=== PATIENT | male | born 1995 ===

== ENCOUNTER 2017-03-06 17:43 | Emergency (ER) | payer BC, MEDICAID, OTHER ==
[2017-03-06 18:25] VITALS: BP 104/73
--- NOTE | 2017-03-06 20:29 | UC ---
Respiratory Complaint HPI - HPI Summary HPI Summary: Patient presents to with fevers, chills, sweats, cough, sore throat, head cold, and sinus congestion x 2 days. Hx of sinus infection. Denies history of PNA. Has felt fatigued, but is working long hours with little sleep. Endorses allergies, but is not taking medication. Denies sick contacts. - History of Current Complaint Chief Complaint: UCRespiratory Stated Complaint: FEVER 101-102 BODYACHES SORE THROAT Time Seen by Provider: 03/06/17 18:26 Hx Obtained From: Patient Onset/Duration: Sudden Onset Timing: Constant Severity Initially: Moderate Severity Currently: Moderate Pain Intensity: 7 Pain Scale Used: 0-10 Numeric Character: Cough: Nonproductive Aggravating Factors: Allergens Associated Signs And Symptoms: Positive: Fever, URI, Nasal Congestion, Sinus Discomfort - Risk Factors Pulmonary Embolism Risk Factors: Negative Cardiac Risk Factors: Negative Pseudomonas Risk Factors: Negative Tuberculosis Risk Factors: Negative - Allergies/Home Medications Allergies/Adverse Reactions: Allergies Allergy/AdvReac Type Severity Reaction Status Date / Time Cefaclor [From Ceclor] Allergy Severe Anaphylatic Verified 03/06/17 18:17 Shock Fluoxetine [From Prozac] Allergy Severe Anaphylatic Verified 03/06/17 18:17 Shock Home Medications: Home Medications Acetaminophen [Eq Acetaminophen] 750 mg PO Q4H PRN 03/06/17 [History Confirmed 03/06/17] Ibuprofen TAB* [Advil TAB*] 800 mg PO Q6H PRN 03/06/17 [History Confirmed ] PMH/Surg Hx/FS Hx/Imm Hx Previously Healthy: Yes - Surgical History Surgical History: None - Family History Known Family History: Positive: Unknown - Social History Occupation: Employed Full-time Lives: With Family Alcohol Use: Occasionally Substance Use Type: None Smoking Status (MU): Never Smoked Tobacco - Immunization History Vaccination Up to Date: Yes Review of Systems Constitutional: Fever, Chills, Fatigue Skin: Negative Eyes: Negative ENT: Sore Throat, Ear Ache, Nasal Discharge Respiratory: Cough Cardiovascular: Negative Genitourinary: Negative Motor: Negative Musculoskeletal: Negative Neurological: Negative Psychological: Negative All Other Systems Reviewed And Are Negative: Yes Physical Exam Triage Information Reviewed: Yes Appearance: Well-Appearing, No Pain Distress, Well-Nourished Vital Signs: Initial Vital Signs Temp 99.1 F 03/06/17 18:19 Pulse 91 03/06/17 18:19 Resp 20 03/06/17 18:19 BP 104/73 03/06/17 18:19 Pulse Ox 99 03/06/17 18:19 Vital Signs Reviewed: Yes Eye Exam: Normal Eyes: Positive: Conjunctiva Clear ENT: Positive: Pharynx normal, Nasal congestion, TMs normal Dental Exam: Normal Neck exam: Normal Neck: Positive: Nontender, No Lymphadenopathy Respiratory Exam: Normal Respiratory: Positive: Chest non-tender, Lungs clear Cardiovascular Exam: Normal Cardiovascular: Positive: RRR Musculoskeletal: Positive: Strength Intact Neurological Exam: Normal Neurological: Positive: Alert Psychological: Positive: Normal Response To Family, Age Appropriate Behavior Skin Exam: Normal Diagnostic Evaluation - Laboratory O2 Sat by Pulse Oximetry: 99 Respiratory Course/Dx - Course Course Of Treatment: Presents with fever, congestion, body aches, malaise, and cough. Encouraged tylenol for fevers. Mucinex, flonase, zofran and claritin given for symptoms. Patient will return if symptoms worsen. Explained to patient treatment options and viral illnesses. - Differential Dx/Diagnosis Differential Diagnosis/HQI/PQRI: Laryngitis, Lower Resp Infection, Sinusitis Provider Diagnoses: Viral Illness Discharge - Discharge Plan Condition: Stable Disposition: HOME Prescriptions: Fluticasone NASAL SPRAY 50MCG* [Flonase NASAL SPRAY 50MCG*] 2 spray BOTH NARES DAILY #1 btl Loratadine [Claritin 10 MG CAP] 10 mg PO DAILY #15 cap Ondansetron ODT TAB* [Zofran 4 MG Odt TAB*] 4 mg PO Q6H PRN #12 tab.odt MDD 4 PRN Reason: Nausea guaiFENesin ER TAB [Mucinex*] 600 mg PO BID #16 tab.er Patient Education Materials: Upper Respiratory Infection (ED) Referrals: Jaden Ibarra MD [Primary Care Provider] - Additional Instructions: Humidifier in the home will help. Tylenol for discomfort. Take all medications as directed. Symptoms should resolve in 1-3 weeks. If symptoms become worse, please come back to or go to the ED. Flonase 2 puffs daily in the AM Claritin 10mg daily in the morning Zofran as needed for nausea - dissolves under tongue Mucinex twice daily (morning and night) Drink plenty of fluids and get plenty of rest >10 hours.
== END 2017-03-06 19:06 | disposition home or self-care (01) ==
LOC: UCCORT 17:43
DX: B34.9 Viral infection, unspecified (principal); Z88.1 Allergy status to other antibiotic agents; Z88.8 Allergy status to other drugs, medicaments and biological substances
CPT/HCPCS: 87651; 99212; G0463

== ENCOUNTER 2018-06-27 20:47 | Emergency (ER) | payer BC ==
[2018-06-27 21:14] VITALS: BP 117/62
[2018-06-27] MEDS ORDERED: Sulfamethox/Trimethoprim DS 800/160* TAB PO ONE (21:47)
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
== END 2018-06-27 21:54 | disposition home or self-care (01) ==
LOC: UCCORT 20:47
DX: T81.4XXA Infection following a procedure, initial encounter (principal); Z88.1 Allergy status to other antibiotic agents; Z88.8 Allergy status to other drugs, medicaments and biological substances; F17.220 Nicotine dependence, chewing tobacco, uncomplicated
CPT/HCPCS: 99212; A9270-GY; G0463

== ENCOUNTER 2018-09-12 12:40 | Emergency (ER) | payer BC ==
[2018-09-12 13:00] VITALS: BP 127/74
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
== END 2018-09-12 14:14 | disposition home or self-care (01) ==
LOC: UCCORT 12:40
DX: S62.347A Nondisplaced fracture of base of fifth metacarpal bone, left hand, initial encounter for closed fracture (principal); Z88.8 Allergy status to other drugs, medicaments and biological substances; Z88.1 Allergy status to other antibiotic agents; W01.0XXA Fall on same level from slipping, tripping and stumbling without subsequent striking against object, initial encounter; Y92.59 Other trade areas as the place of occurrence of the external cause; Z98.890 Other specified postprocedural states
CPT/HCPCS: 99213; G0463

== ENCOUNTER 2018-12-22 18:56 | Emergency (ER) | payer BC ==
--- OUTSIDE RECORDS SUMMARY | 2018-12-22 19:06 | XMS REPORT | Continuity of Care Document ---
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 Payers Date Identification Numbers Payment Provider Subscriber Effective: 2016 Policy Number: [id number] BCBS Ppo Giuliano Guadalupe PayID: [id number] [place] [address] Policy Number: [id number] BCBS Ppo Louisa E Anayeli PayID: [id number] [address] [address] [place] [address] Expires: 2016 Policy Number: [id number] BCBS Ppo Louisa E Anayeli PayID: [id number] [place] [address] Policy Number: [id number] Medicaid ### >12 Giuliano Guadalupe PayID: [id number] [address] [place] [address] Policy Number: [id number] [employer] [address] Louisa [address] Anayeli [address] [place] [address] Advance Directives Description No Information Available Problems Date Description Provider Status Onset: 12/19/2018 Tobacco user Jaden Ibarra MD Active Onset: 07/10/2011 No current problems or disability Inactive Inactive: 12/19/2018 Family History Description No Information Available Social History Type Date Description Comments Sex Unknown Marital Status Single Occupation [employer] Smokeless Tobacco Quit - Age 20 previously used 1 can/day Allergies, Adverse Reactions, Alerts Date Description Reaction Status Severity Comments 02/15/2009 Prozac rash & swelling Active 05/16/2006 Ceclor Active Rash 05/16/2006 Zyrtec Active Rash 07/15/2015 Clindamycin Active hives Medications Medication Date Status Form Strength Qnty SIG Indications Ordering Provider Doxycycline Active Tablets 100mg 20tabs 1 by mouth Digiovanna Hyclate 019 twice a , Jaden, day x 10 MD days (w/ food but not milk) Ibuprofen Active Tablets 200mg prn for Digiovanna 000 fever/cardona , Jaden J Doxycycline Hx Tablets 100mg 6tabs 1 by mouth W57.xxxA Digiovanna Hyclate 017 - twice a , Jaden, day x 3 MD 017 days (w/ food but not milk) Amoxicillin/Cl Hx Tablets 875-125mg 20tabs 1 by mouth J01.90 Digiovanna avulanate 016 - every 12 , Potassium hours for Ghada, 016 10 days - 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 PCN allergy Doxycycline Hx Capsules 100mg 2caps take 2 W57.xxxA Digiovanna Hyclate 016 - capsules , Jaden, by mouth 016 once Immunizations CPT Code Status Date Vaccine Reaction Lot # [id number] Given 11/07/2018 Gardasil-9 (HPV) Nonavalent Im inj completed, Pt [id number] 2-3 Dose Schedule Im tolerated well 26639 Given 10/07/2018 Gardasil-9 (HPV) Nonavalent [id number] 2-3 [place] [address] Given 09/28/2018 Tdap (Adacel) Ages 7 And Above Only 84189 Given 07/10/2011 Menactra/Menveo (MOTHER SAYS THAT [place] Meningococcal Vaccine INSURANCE DOES PAY FOR VACCINES [facility] SERUM USED) 25403 Given 07/10/2011 Afluria Or Fluvirin Flu Vac (MOTHER SAYS THAT [place] Intramuscular INSURANCE DOES PAY FOR VACCINES [facility] SERUM USED) 35544 Given 09/10/2009 Afluria Or Fluvirin Flu Vac Intramuscular 71508 Given 08/20/2008 Afluria Or Fluvirin Flu Vac Intramuscular 88317 Given 07/19/2007 Varicella (Chicken Pox) [facility] SERUM Immunization 17308 Given 07/19/2007 Varicella (Chicken Pox) Immunization 42591 Given 04/19/2007 Tdap (Adacel) Ages 7 And Above Only 82708 Given 10/25/1999 MMR Virus Immunization OLD RECORDS 45412 Given 10/25/1999 DTaP Immunization 7 Yrs & OLD RECORDS Younger 82214 Given 02/15/1998 DTP & Hib Immunization OLD RECORDS 15741 Given 12/08/1996 MMR Virus Immunization OLD RECORDS 05923 Given 07/04/1996 Hepatitis B Vac OLD RECORDS Ped/Adolescent 3 Dose Schedule 19193 Given 07/04/1996 DTP & Hib Immunization OLD RECORDS 55539 Given 07/04/1996 Oral Poliovirus OLD RECORDS Immunization 32625 Given 02/26/1996 DTP & Hib Immunization OLD RECORDS 64639 Given 02/26/1996 Oral Poliovirus OLD RECORDS Immunization 62436 Given 1995 Hepatitis B Vac OLD RECORDS Ped/Adolescent 3 Dose Schedule 07440 Given 1995 DTP & Hib Immunization OLD RECORDS 61719 Given 1995 Oral Poliovirus OLD RECORDS Immunization 32796 Given 1995 Hepatitis B Vac OLD RECORDS Ped/Adolescent 3 Dose Schedule 09752 Refused 10/07/2018 Afluria Or Fluvirin Flu Vac Intramuscular Vital Signs Date Vital Result Comment 12/19/2018 10:32am Body Temperature 97.1 F Weight 135.00 lb Heart Rate 92 /min BP Systolic 118 mmHg BP Diastolic 80 mmHg Respiratory Rate 18 /min Height 71 inches 5'11" O2 % BldC Oximetry 98 % Ra BMI (Body Mass Index) 18.8 kg/m2 10/07/2018 2:16pm Weight 134.00 lb Heart Rate 84 /min BP Systolic 112 mmHg BP Diastolic 68 mmHg Respiratory Rate 16 /min 07/16/2017 11:05am Weight 137.00 lb Heart Rate 74 /min BP Systolic 118 mmHg BP Diastolic 68 mmHg Respiratory Rate 18 /min Height 70.5 inches 5'10.50" BMI (Body Mass Index) 19.4 kg/m2 09/20/2016 3:56pm Body Temperature 98.1 F Weight 136.00 lb Heart Rate 84 /min BP Systolic 112 mmHg BP Diastolic 68 mmHg Respiratory Rate 18 /min Height 70.5 inches 5'10.50" O2 % BldC Oximetry 98 % Ra BMI (Body Mass Index) 19.2 kg/m2 Body Mass Index Percentile 99 % 02/25/2016 9:42am Weight 130.00 lb Heart Rate 74 /min BP Systolic 120 mmHg BP Diastolic 80 mmHg Respiratory Rate 18 /min Height 70.5 inches 5'10.50" BMI (Body Mass Index) 18.4 kg/m2 07/15/2015 11:21am Body Temperature 97.9 F Weight 131.00 lb Heart Rate 74 /min BP Systolic 100 mmHg BP Diastolic 60 mmHg Respiratory Rate 18 /min Height 70.5 inches 5'10.50" O2 % BldC Oximetry 98 % BMI (Body Mass Index) 18.5 kg/m2 01/21/2013 3:58pm Body Temperature 99.0 F Weight 129.00 lb Heart Rate 76 /min BP Systolic 102 mmHg BP Diastolic 70 mmHg Respiratory Rate 18 /min Height 70 inches 5'10" 11/06/2012 9:38am Body Temperature 97.8 F Weight 131.31 lb Up 2# Heart Rate 72 /min BP Systolic 132 mmHg L/Reg BP Diastolic 72 mmHg L/Reg Respiratory Rate 19 /min Height 69.75 inches 5'9.75" 12/27/2011 8:01am Body Temperature 97.3 F Weight 129.00 lb Heart Rate 64 /min BP Systolic 118 mmHg L/Reg BP Diastolic 78 mmHg L/Reg Respiratory Rate 18 /min Height 69.4 inches 5'9.40" 10/04/2011 4:01pm Body Temperature 98.4 F Weight 127.56 lb Heart Rate 60 /min BP Systolic 110 mmHg BP Diastolic 64 mmHg Respiratory Rate 17 /min Height 68.5 inches 5'8.50" 07/17/2011 1:46pm Weight 126.00 lb Up 4# Heart Rate 74 /min BP Systolic 128 mmHg L/Reg BP Diastolic 88 mmHg L/Reg Respiratory Rate 19 /min Height 68.5 inches 5'8.50" 07/10/2011 2:19pm Weight 122.25 lb Heart Rate 80 /min BP Systolic 118 mmHg L/Med BP Diastolic 92 mmHg L/Med Respiratory Rate 19 /min Height 68.5 inches 5'8.50" 06/22/2011 4:26pm Weight 124.00 lb Heart Rate 90 /min BP Systolic 102 mmHg BP Diastolic 68 mmHg Respiratory Rate 24 /min Height 68.5 inches 5'8.50" 08/02/2010 4:09pm Weight 116.00 lb BP Systolic 120 mmHg BP Diastolic 58 mmHg 05/27/2010 2:04pm Weight 117.19 lb Heart Rate 60 /min BP Systolic 98 mmHg l arm BP Diastolic 62 mmHg l arm Respiratory Rate 18 /min 02/15/2010 3:42pm Body Temperature 97.3 F 12:30 Today Tylenol/10:30 Motrin Weight 109.44 lb Heart Rate 79 /min BP Systolic 100 mmHg BP Diastolic 72 mmHg 02/15/2009 3:40pm Body Temperature 98.2 F Weight 95.31 lb Heart Rate 70 /min BP Systolic 112 mmHg BP Diastolic 70 mmHg Respiratory Rate 18 /min 01/27/2009 4:19pm Weight 97.06 lb Heart Rate 76 /min BP Systolic 110 mmHg LEFT BP Diastolic 62 mmHg LEFT Respiratory Rate 15 /min 11/05/2008 8:23am Weight 92.56 lb Heart Rate 72 /min BP Systolic 112 mmHg R/Reg BP Diastolic 72 mmHg R/Reg Respiratory Rate 15 /min Height 61.6 inches 5'1.60" 08/26/2008 11:20am Body Temperature 96.0 F Weight 90.00 lb Heart Rate 88 /min BP Systolic 102 mmHg BP Diastolic 68 mmHg Respiratory Rate 20 /min 01/20/2008 2:37pm Weight 86.00 lb Heart Rate 81 /min BP Systolic 94 mmHg BP Diastolic 70 mmHg Respiratory Rate 18 /min 12/09/2007 2:50pm Body Temperature 95.8 F Weight 86.00 lb Heart Rate 80 /min BP Systolic 100 mmHg BP Diastolic 70 mmHg 05/20/2007 4:24pm Body Temperature 101.0 F Had 300MG Advil 1HR Ago Weight 75.00 lb 8#Loss Heart Rate 104 /min BP Systolic 100 mmHg BP Diastolic 60 mmHg Respiratory Rate 20 /min 04/19/2007 3:11pm Body Temperature 97.8 F Weight 83.00 lb Heart Rate 85 /min BP Systolic 110 mmHg BP Diastolic 80 mmHg Respiratory Rate 17 /min 12/05/2006 11:22am Body Temperature 97.8 F Weight 77.12 lb Up 2# Heart Rate 70 /min BP Systolic 114 mmHg L/Peds BP Diastolic 76 mmHg L/Peds Respiratory Rate 12 /min 10/16/2006 2:30pm Weight 75.00 lb Heart Rate 92 /min BP Systolic 112 mmHg L/Med BP Diastolic 66 mmHg L/Med Height 56.3 inches 4'8.30" 07/06/2006 1:09pm Body Temperature 97.6 F Weight 74.38 lb Up 3# Heart Rate 98 /min BP Systolic 108 mmHg L/Med BP Diastolic 60 mmHg L/Med 06/15/2006 8:53am Body Temperature 98.4 F Weight 71.25 lb Up 2# Heart Rate 84 /min BP Systolic 102 mmHg R/Peds BP Diastolic 56 mmHg R/Peds Respiratory Rate 20 /min 06/14/2006 9:12am Weight 69.19 lb Heart Rate 94 /min BP Systolic 108 mmHg L/Med BP Diastolic 64 mmHg L/Med 06/08/2006 3:02pm Weight 71.50 lb Up 1# Heart Rate 92 /min BP Systolic 102 mmHg R/Med BP Diastolic 64 mmHg R/Med 05/24/2006 1:45pm Body Temperature 97.0 F Weight 70.00 lb 05/21/2006 4:19pm Weight 70.06 lb Up 3# Heart Rate 90 /min BP Systolic 92 mmHg L/Med BP Diastolic 68 mmHg L/Med 05/16/2006 2:38pm Weight 67.38 lb Heart Rate 70 /min BP Systolic 102 mmHg L/Med BP Diastolic 58 mmHg L/Med Respiratory Rate 20 /min Height 55.75 inches 4'7.75" Results Test Date Facility Test Result H/L Range Note Laboratory test N2N/CCD Import Cryptosporidium Negative For 1 finding 7 Specific Ag Cry <See Note> Giardia Specific Antigen Negative For Jo[place] <See Note> 2 [facility] [place] [facility] <see comment> 3 Parasitology Conc. Smear <see comment> 4 Parasitology Permanent Smear <see comment> 5 Stool Culture <see comment> 6 Laboratory test finding 05/23/2007 N2N/CCD Import Hematocrit 30.5 % Low 35.0-45.0 Hemoglobin 11.2 gm/dL Low 11.5-15.5 Mean Cell Volume 76.4 fL Low 77.0-95.0 Mean Corpuscular HGB 27.9 pg 25.0-33.0 Mean Corpuscular HGB Conc 36.6 g/dL High 31.7-36.0 Mean Platelet Volume 6.6 fl 6.6-10.6 Platelet Count 243 K/uL 150-400 Red Blood Count 4.00 M/uL 4.00-5.20 Red Cell Distri Width %CV 12.4 % 11.6-15.8 White Blood Count 6.2 K/uL 4.5-13.5 Differential-WBC 05/23/2007 N2N/CCD Import Anisocytosis 0-1+ Band% 26 % Lymph% 25 % 17-56 Microcytosis 1+ Monocyte% 17 % High 0-10 Myelocyte% 2 High -0 % Neutrophils% 30 % 28-68 Platelet Estimate Normal Total Cells Counted 100 #Cells Laboratory test finding 05/23/2007 N2N/CCD Import Anion Gap 14 mEq/L 8- 16 BUN 14 mg/dL 5-23 BUN/Creat 20.0 Calcium 8.8 mg/dL 8.5-10.1 Carbon Dioxide 25 mEq/L 21-32 Chloride 98 mEq/L 98-107 Creatinine 0.7 mg/dL 0.5-1.4 Glucose 127 mg/dL High 76-115 NT-proBNP 432.9 pg/mL High <125.0 7 Potassium 3.5 mEq/L 3.5-5.1 Sodium 133 mEq/L Low 136-145 Laboratory test finding 05/22/2007 N2N/CCD Import Anion Gap 14 mEq/L 8- 16 Anisocytosis 0-1+ Atypical Lymph% 2 % 0-7 BUN 29 mg/dL High 5-23 BUN/Creat 32.2 Band% 40 % Calcium 9.3 mg/dL 8.5-10.1 Carbon Dioxide 26 mEq/L 21-32 Chloride 91 mEq/L Low 98-107 Creatinine 0.9 mg/dL 0.5-1.4 Differential Comment Few LRG PLTS See <See Note> Glucose 147 mg/dL High 76-115 Hematocrit 42.7 % 35.0-45.0 Hemoglobin 14.9 gm/dL 11.5-15.5 Lymph% 18 % 17-56 Mean Cell Volume 81.2 fl 77.0-95.0 Mean Corpuscular HGB 28.4 pg 25.0-33.0 Mean Corpuscular HGB Conc 35.0 g/dL 32.0-35.5 Mean Platelet Volume 8.6 fl 6.0-9.9 Metamyelocyte% 2 % Microcytosis 2+ Monocyte% 20 % High 0-10 Myelocyte% 1 High -0 % Neutrophils% 17 % Low 28-68 Platelet Count 327 K/uL 145-400 Platelet Estimate Normal Potassium 4.1 mEq/L 3.5-5.1 Red Blood Count 5.26 M/uL High 4.00-5.20 Red Cell Distri Width %CV 12.6 % 12.3-15.8 Rouleaux 0-1+ Sodium 127 mEq/L Low 136-145 Total Cells Counted 100 #Cells White Blood Count 8.4 K/uL 4.5-13.5 8 Laboratory test 06/15/2006 N2N/CCD Import Culture Throat Normal Throat FL 9 finding <See Note> 1 NEGATIVE FOR CRYPTOSPORIDIUM SPECIFIC ANTIGEN 2 NEGATIVE FOR GIARDIA SPECIFIC ANTIGEN. 3 Organism Identification Salmonella Typhimurium was identified. TEST PERFORMED AT: [facility] [address] [place] [address] 4 NO OVA, CYSTS, OR PARASITES FOUND. Specimen was processed by formalin ethyl- acetate concentration and was reviewed with unstained and iodine-stained direct light exam. It does not include testing for Cryptosporidium parvum, Cyclospora, or Microsporidia. 5 NO CYSTS OR TROPHOZOITES OBSERVED. Specimen was processed by formalin ethyl- acetate concentration and a trichrome stained slide was reviewed. It does not include testing for Cryptosporidium parvum, Cyclospora, or Microsporidia. 6 Organism 1 ! SALMONELLA SPECIES QUANTITY ! FEW 7 Increased levels of BNP may also be seen in the following conditions: AMI ( first 2-5 days) Hypertension with LVH Acute Dyspnea Pulmonary Embolism Obstructive Pulmonary Disease Hyperthyroidism Liver Cirrhosis with Ascites Renal Failure (acute or chronic) 8 FEW LRG PLTS SEEN 9 NORMAL THROAT LISA Procedures Date Code Description Status 12/19/2018 23919 Measure Blood Oxygen Level Single Determination Completed 09/20/2016 30787 Measure Blood Oxygen Level Single Determination Completed 07/15/2015 93710 Measure Blood Oxygen Level Single Determination Completed 01/21/2013 07953 Visual Screening Test Completed 01/21/2013 04431 Screening Hearing Test Completed 07/10/2011 70252 Visual Screening Test Completed 07/10/2011 80336 Screening Hearing Test Completed Encounters Type Date Location Provider Dx Diagnosis Office Visit 10/07/2018 [facility] Fred, S00.83xA Contusion of other 2:15p MD Jaden part of head, initial encounter Z23 Encounter for immunization Office Visit 07/16/2017 11:15a [facility] Jaden Ibarra, W57.xxxA Bit/ stung by nonvenom insect & oth nonvenom arthropods, init L03.314 Cellulitis of groin Office Visit 09/20/2016 4:00p [facility] Ghada Ibarra J01.90 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, 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 Office Visit 02/25/2016 9:45a [facility] Jaden Ibarra, S00.86xA Insect bite MD (nonvenomous) of other part of head, init encntr W57.xxxA Bit/stung by nonvenom insect & oth nonvenom arthropods, init W57.xxxA Bit/stung by nonvenom insect & oth nonvenom arthropods, init Office Visit 07/15/2015 11:15a [facility] Amira Perera PA L50.0 Allergic urticaria Plan of Treatment 12/19/2018 - Jaden Ibarra MDJ01.90 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, unspecifiedFollow up :Follow up as dvrpusL84.220 Nicotine dependence, chewing tobacco, [id number] Body mass index (BMI) 19.9 or less, adult
[2018-12-22 19:14] VITALS: BP 118/65
[2018-12-22] MEDS ORDERED: Fluorescein Sodium TOPICAL* 1 MG TEST STRIP OPHTHALMIC ONE (19:26)
[2018-12-22] MEDS ORDERED: Polymyx/Trimethoprim OPTH* 10 ML BTL LEFT EYE ONE (19:36)
--- NOTE | 2018-12-22 19:38 | UC ---
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 He is allergic to hay eye feels gritty with f/b sensation under upper lid red/rearing and profuse purulent d/c - History of Current Complaint Chief Complaint: UCEye Stated Complaint: LEFT EYE CONCERN Time Seen by Provider: 12/22/18 19:21 Hx Obtained From: Patient Onset/Duration: Sudden Onset, Lasting Hours Timing: Constant Severity Initially: Mild Severity Currently: Moderate Pain Intensity: 2 Pain Scale Used: 0-10 Numeric Location of Injury: Conjunctiva, Eye Lid (upper) Character: Foreign Body Sensation Aggravating Factor(s): Nothing Alleviating Factor(s): Nothing Associated Signs And Symptoms: Positive: Drainage (Purulent) Related History: Foreign Body - Allergies/Home Medications Allergies/Adverse Reactions: Allergies Allergy/AdvReac Type Severity Reaction Status Date / Time cetirizine [From Zyrtec] Allergy Unknown Hives Verified 12/22/18 19:15 cefaclor [From Ceclor] Allergy Anaphylatic Verified 12/22/18 19:15 Shock fluoxetine [From Prozac] Allergy Anaphylatic Verified 12/22/18 19:15 Shock Home Medications: Home Medications Ibuprofen TAB* [Motrin TAB* 600 MG] 600 mg PO Q8H PRN 12/22/18 [History Confirmed 12/22/18] PMH/Surg Hx/FS Hx/Imm Hx Previously Healthy: Yes - Surgical History Surgical History: Yes Surgery Procedure, Year, and Place: left clavicle repair - Family History Known Family History: Positive: Unknown - Social History Alcohol Use: Weekly Substance Use Type: None Smoking Status (MU): Never Smoked Tobacco Type: Smokeless Tobacco Amount Used/How Often: one can a day Length of Time of Smoking/Using Tobacco: 6 yrs Have You Smoked in the Last Year: No - uses smokeless tobacco - Immunization History Vaccination Up to Date: Yes Review of Systems All Other Systems Reviewed And Are Negative: Yes Constitutional: Positive: Negative Skin: Positive: Negative Eyes: Positive: Drainage - L, Eye Redness - L ENT: Positive: Negative Respiratory: Positive: Negative Cardiovascular: Positive: Negative Gastrointestinal: Positive: Negative Genitourinary: Positive: Negative Motor: Positive: Negative Neurovascular: Positive: Negative Musculoskeletal: Positive: Negative Neurological: Positive: Negative Psychological: Positive: Negative Physical Exam Triage Information Reviewed: Yes Appearance: Well-Appearing, No Pain Distress, Well-Nourished Vital Signs: Initial Vital Signs Temp 98.7 F 12/22/18 19:09 Pulse 79 12/22/18 19:09 Resp 16 12/22/18 19:09 BP 118/65 12/22/18 19:09 Pulse Ox 99 12/22/18 19:09 Vital Signs Reviewed: Yes Eyes: Positive: Conjunctiva Inflamed - L, Discharge - L, Other: - no fb noted/ lid everted, (-) florescein staining ENT: Positive: Hearing grossly normal, Uvula midline. Negative: Nasal congestion, Nasal drainage, Trismus, Muffled voice, Hoarse voice Neck: Positive: Supple, Nontender, No Lymphadenopathy Respiratory: Positive: Lungs clear, Normal breath sounds, No respiratory distress, No accessory muscle use Cardiovascular: Positive: RRR, No Murmur Musculoskeletal: Positive: No Edema Neurological: Positive: Alert Psychological Exam: Normal Skin Exam: Normal Eye Complaint Course/Dx - Course Course Of Treatment: pt advised he may have a fb that I am not visualizing should see eye MD tomorrow unless his symptoms have resolved - Differential Dx/Diagnosis Provider Diagnosis: Conjunctivitis, left eye Discharge - Sign-Out/Discharge Documenting (check all that apply): Patient Departure All imaging exams completed and their final reports reviewed: No Studies - Discharge Plan Condition: Stable Disposition: HOME Patient Education Materials: Conjunctivitis (ED) Referrals: Indra Beck MD [Medical Doctor] - 1 Day Ashley Flores MD [Medical Doctor] - 1 Day Additional Instructions: I saw no foreign body This may be a bad reaction to foreign matter that got in your eye or there pain be a tiny foreign body that I am not seeing cool compresses use drops as directed I suggest you try to find ZADITOR eye drops (OTC) to use them as well See an eye doctor in AM if foreign body sensation persists - Billing Disposition and Condition Condition: STABLE Disposition: Home
== END 2018-12-22 20:03 | disposition home or self-care (01) ==
LOC: UCCORT 18:56
DX: H10.9 Unspecified conjunctivitis (principal); Z88.8 Allergy status to other drugs, medicaments and biological substances; Z88.1 Allergy status to other antibiotic agents
CPT/HCPCS: 99212; A9270-GY; G0463